=== PATIENT | male | born 2000 | race Caucasian/White ===

== ENCOUNTER 2023-11-07 14:41 | Emergency (ER) | payer SELFPAY ==
[2023-11-07 14:45] VITALS: BP 124/73; PULSE 67; RESP 16; TEMP 36.6; O2SAT 99; BMI 22.3
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
[2023-11-07 16:15] VITALS: BP 124/73; PULSE 67; RESP 16; TEMP 36.6; O2SAT 99
== END 2023-11-07 16:16 | disposition home or self-care (01) ==
PROVIDERS: Emergency Provider Nurse Practitioner Family
DX: S00.83XA Contusion of other part of head, initial encounter (principal); S40.011A Contusion of right shoulder, initial encounter; S00.81XA Abrasion of other part of head, initial encounter; S80.811A Abrasion, right lower leg, initial encounter; W20.8XXA Other cause of strike by thrown, projected or falling object, initial encounter; Y93.16 Activity, rowing, canoeing, kayaking, rafting and tubing
CPT/HCPCS: 70450; 72125; 73000; 73030; 99284